=== PATIENT | male | born 1975 | race Caucasian/White ===

== ENCOUNTER 2024-05-03 17:23 | Observation (INO) | payer SELFPAY ==
[2024-05-03] MEDS: Albuterol/Ipratropium 3.0-0.5 MG/3 ML Neb Soln NEB ONE ×3 (17:23→18:21)
[2024-05-03] MEDS: Aspirin 81 MG Tab.Chew PO ONE (17:47)
[2024-05-03 17:50] LABS: HEMATOCRIT 47.1 % (39.0-49.0); HEMOGLOBIN 16.1 g/dL (13.1-16.8); MEAN CORPUSCULAR HEMOGLOBIN 29.2 pg (28.2-33.3); MEAN CORPUSCULAR HGB CONC 34.2 g/dL (31.7-36.0); MEAN CORPUSCULAR VOLUME 85.5 fL (84.0-98.0); PLATELET COUNT,PLT 338 K/uL (150-350); RED BLOOD CELL COUNT 5.51 M/uL (4.33-5.41); RED CELL DISTRIBUTION WIDTH 12.8 % (11.2-14.1); WHITE BLOOD CELL COUNT,WBC 7.5 K/uL (4.0-10.2)
[2024-05-03] MEDS: Albuterol/Ipratropium 3.0-0.5 MG/3 ML Neb Soln ONE ×3 (18:13→18:16)
[2024-05-03] MEDS: Aspirin 81 MG Tab.Chew ONE (18:15)
[2024-05-03 18:17] LABS: ANION GAP 11.5 meq/L (7-15); BASOPHILS PERCENT MAN 3; BILIRUBIN TOTAL 0.6 mg/dL (0.2-1.0); CALCIUM 9.4 mg/dL (8.5-10.1); CARBON DIOXIDE,CO2 28.5 mmol/L (21.0-32.0); CREATININE 1.17 mg/dL (0.51-1.17); EOSINOPHILS PERCENT MAN 11; EST CRCL DRUG DOSING (CG) 80.45 mL/min; LYMPHOCYTES % ATYPICAL MANUAL 10; LYMPHOCYTES PERCENT MAN 17; MONOCYTES PERCENT MAN 5; PROTEIN TOTAL,TP 8.2 g/dL (6.4-8.2); SEG NEUTROPHILS PERCENT MAN 54
[2024-05-03] MEDS ORDERED: Acetaminophen 325 MG Tab PO PRN (18:54)
[2024-05-03] MEDS ORDERED: Ondansetron 4 MG Tab.DIS PO PRN (18:54)
[2024-05-03] MEDS: Budesonide 0.5 MG/2 ML Neb Susp NEB SCH (19:40)
[2024-05-03] MEDS: methylPREDNISolone Sodium Succinate 125 MG/2 ML SDV IVPUSH ONE (19:40)
[2024-05-03] MEDS: Sodium Chloride 0.9% 10 ML Syringe FLUSH PRN (19:42)
[2024-05-04 00:22] LABS: CORONAVIRUS COVID-19 NAA NEGATIVE (NEGATIVE); INFLUENZA A NAA NEGATIVE (NEGATIVE); INFLUENZA B NAA NEGATIVE (NEGATIVE); RESPIRATORY SYNCYTIAL VIR NAA NEGATIVE (NEGATIVE)
[2024-05-04] MEDS: Albuterol/Ipratropium 3.0-0.5 MG/3 ML Neb Soln NEB PRN (07:52)
[2024-05-04] MEDS: Omeprazole 20 MG Cap.CR PO ONE (09:51)
[2024-05-04] MEDS: Albuterol 0.083% 2.5 MG/3 ML Neb Soln NEB ONE (14:00)
[2024-05-04] MEDS: Take Home: Albuterol 0.083% 2.5 MG/3 ML Neb Soln, 5 Neb Pack NEB ONE (14:00)
[2024-05-04] MEDS: Budesonide 0.5 MG/2 ML Neb Susp NEB ONE (14:00)
[2024-05-04] MEDS: Take Home: Albuterol 0.083% 2.5 MG/3 ML Neb Soln, 5 Neb Pack ONE (17:43)
== END 2024-05-04 14:10 | disposition home or self-care (01) ==
LOC: LL.ED 17:23 → UNDOADMOB 18:35 → LL.MS 18:35 → UNDODISOB 05-04 14:10
PROVIDERS: ADMIT Physician Assistant; ATTEND Physician Assistant
DX: J45.41 Moderate persistent asthma with (acute) exacerbation (principal); R07.89 Other chest pain; K21.9 Gastro-esophageal reflux disease without esophagitis; Z79.899 Other long term (current) drug therapy
CPT/HCPCS: 0241U; 36415; 71046; 80053; 83880; 84484; 85025; 93005; 94640; 96374; 99285; A9270-GY; G0378; J2919; J3490; J7620-GY